=== PATIENT | female | born 1950 | race Caucasian/White ===

== ENCOUNTER 2018-07-21 03:11 | Observation (INO) | payer MEDICARE, OTHER ==
[2018-07-20 14:46] LABS: INR 0.96
[2018-07-21] VITALS (11 sets, daily range): BP systolic 85–155; BP diastolic 49–89
[~2018-07-21] VITALS: Ht 165.1 cm; Wt 89.4 kg
[~2018-07-21 03:11] MED LIST: ACETAMINOPHEN 500 MG TAB PO ONE; CALC500T6 PO; CELECOXIB 200 MG CAP PO ONE; FERR159T PO; MULT-1335 PO; PREGABALIN 150 MG CAPSULE PO ONE
[2018-07-21] MEDS ORDERED: FAMOTIDINE 20 MG TAB PO ONE (06:00)
[2018-07-21] MEDS ORDERED: LIDOCAINE/SOD BICARB 8.4% SYR ID ONE (06:00)
[2018-07-21] MEDS ORDERED: MIDAZOLAM 2 MG/2 ML VIAL IVP PRN (06:00)
[2018-07-21] MEDS ORDERED: NORMOSOL R SOLN(*) 1000 ML BAG 1,000 ML IV PRN ×2 (06:00→10:25)
[2018-07-21] MEDS ORDERED: cloNIDine EPIDUR INJ 100MCG/ML 40 MCG, ROPIVACAINE 0.5% 20 ML VIAL 25 ML, EPINEPHrine H... INJ ONE (06:15)
[2018-07-21] MEDS ORDERED: TRANEXAMIC AC 1000 MG/10ML SDV 1,000 MG in DEXTROSE 5% 50 ML BAG 50 ML IV ONE (06:15)
[2018-07-21] MEDS ORDERED: PREGABALIN 150 MG CAPSULE PO ONE (06:15)
[2018-07-21] MEDS ORDERED: CELECOXIB 200 MG CAP PO ONE (06:15)
[2018-07-21] MEDS ORDERED: ACETAMINOPHEN 500 MG TAB PO ONE (06:15)
[2018-07-21] MEDS ORDERED: ceFAZolin(*) 2GM/D5W 50ML 50 ML IVPB ONE (06:15)
[2018-07-21] MEDS ORDERED: ROPIVACAINE 0.2% 400 MG/200ML 250 ML CONINFUS ONE (06:15)
[2018-07-21] MEDS ORDERED: PROPOFOL EMUL(*) 10MG/ML 20 ML 20 ML ONE (06:41)
[2018-07-21] MEDS ORDERED: LIDOCAINE MPF 1% 5 ML VIAL ONE (06:41)
[2018-07-21] MEDS ORDERED: ROPIVACAINE 0.2% 20 ML VIAL ONE ×2 (06:41)
[2018-07-21] MEDS ORDERED: DEXAMETHASONE SOD 4 MG/ML VIAL ONE ×2 (06:41→06:42)
[2018-07-21] MEDS ORDERED: ONDANSETRON 4 MG/2 ML VIAL ONE (06:41)
[2018-07-21] MEDS ORDERED: fentaNYL CITR 100 MCG/2 ML AMP ONE ×2 (06:42→08:23)
[2018-07-21] MEDS ORDERED: KETAMINE HCL-NS 50 MG/5 ML SYR ONE (06:42)
[2018-07-21] MEDS ORDERED: NS 0.9% IRRIGATION 1000ML PLCT IR ONE (08:21)
[2018-07-21] MEDS ORDERED: LACTATED RINGER 3000 ML BAG IR ONE (08:21)
[2018-07-21] MEDS ORDERED: WATER STERILE FOR IRRIG 1000ML IR ONE (08:22)
[2018-07-21] MEDS ORDERED: KETOROLAC 30 MG/ML VIAL ONE (10:13)
[2018-07-21] MEDS ORDERED: ONDANSETRON 4 MG/2 ML VIAL IVP PRN (10:25)
[2018-07-21] MEDS ORDERED: MAGNESIUM HYDROXIDE* 30ML UDCP PO PRN (10:25)
[2018-07-21] MEDS ORDERED: ZOLPIDEM TARTRATE 5 MG TAB PO PRN (10:25)
[2018-07-21] MEDS ORDERED: KETOROLAC TROM 10MG TAB PO PRN (10:25)
[2018-07-21] MEDS ORDERED: BISACODYL 10 MG SUPP PR PRN (10:25)
[2018-07-21] MEDS ORDERED: MORPHINE 4 MG/ML SDV IVP PRN (10:25)
[2018-07-21] MEDS ORDERED: FLUSH 10 ML SYR IVP PRN (10:25)
[2018-07-21] MEDS ORDERED: PROMETHAZINE 25 MG/ML 1 ML AMP IVP PRN (10:25)
--- NOTE | 2018-07-21 11:21 | RADIOLOGY IMAGING REPORT ---
FACILITY: [facility] - [place] PATIENT NAME: Katerina Valente : 1950 MR: [id number] V: [id number] EXAM DATE: ORDERING PHYSICIAN: TOLU KELLEY TECHNOLOGIST: Location: [facility] Patient: Katerina Valente : 1950 Visit/Account:[id number] Date of Sevice: 07/21/2018 KNEE LIMITED RIGHT Indication: POST TKA Comparison: None. Findings: There are postoperative changes from right total knee arthroplasty. The femoral, patellar, and tibial components are in good alignment. Impression: Postoperative changes right total knee arthroplasty. Report Dictated By: Danish Felix at 07/21/2018 11:15 AM Report E-Signed By: Danish Felix at 07/21/2018 11:16 AM MORN:YVONNE
--- NOTE | 2018-07-21 11:30 | Hospitalist Consultation ---
History of Present Illness Requesting Physician Dr. Gann Reason for Consult Medical Management Chief Complaint s/p right total knee replacement History of Present Illness She was admitted s/p right total knee replacement. It is reported the surgery went well and without complication. History Problems: (1) History of DVT (deep vein thrombosis) Status: Resolved Home Meds Reported Medications Ferrous Sulfate, Dried (IRON) 159 Mg Tablet.er, PO 07/16/18 Calcium Carbonate (CALCIUM) 500 Mg Tablet, 500 MG PO QDAY 07/16/18 Multivitamin With Minerals (MULTIPLE VITAMIN) 1 Each Tablet, 1 EACH PO QDAY, TAB 07/16/18 Allergies: Coded Allergies: No Known Drug Allergies (Unverified , 07/16/18) Hx Smoking: No Caffeine Intake: Coffee, Tea Caffeine/Cups Per Day: 2-3 SERVINGS/DAY Hx Alcohol Use: No Hx Substance Use Disorder: No Social Drug Use: Never Review of Systems All Systems Reviewed/Normal: Yes, Except as Noted Exam Vital Signs Vital Signs Date Time Temp Pulse Resp B/P (MAP) Pulse Ox O2 Delivery O2 Flow Rate FiO2 07/21/18 11:01 93 Nasal Cannula 2.0 07/21/18 10:51 97.7 58 16 114/60 (78) General Appearance: Alert, Awake, No Acute Distress, Afebrile Neuro: No Gross deficits Cardiovascular: Regular Rate and Rhythm Respiratory: No Respiratory Distress, Clear to Auscultation Psych: Alert & Oriented X3, Appropriate Mood & Affect Assessment and Plan Problems: (1) Status post total right knee replacement Status: Acute Assessment & Plan: Followed by Dr. Gann. She does have a history of DVT after delivery of her baby. She was placed on strict bed rest after delivery. She has no family history of blood clots. I feel this DVT event was provoked by the strict bed rest. The patient will be placed on Aspirin at this time. If she is not moving well, she would like to change to Xarelto. (2) History of DVT (deep vein thrombosis) Status: Resolved Assessment & Plan: In 1971. See above. Venous Thromboembolism Antithrombotics Is Pt On Any Antithrombotics?: No Exam Sepsis Risk: No Definite Risk ANSON PEGUERO COMMISSIONING MANAGER Jul 21, 2018 11:30
--- NOTE | 2018-07-21 12:07 | CARSON TKA ---
EVENT DATE: July 21, 2018 SURGEON: Carlos Gann MD ANESTHESIOLOGIST: Andi Madison MD ANESTHESIA: Right adductor block followed by general. 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 PROCEDURE PERFORMED Right total knee arthroplasty. IMPLANTS MicroPort medial pivot CS system with a 4 femur, 4 tibia, 12 mm CS insert, 8 x 32 symmetric patella, femur cut 6 degrees valgus, 10 mm. We also utilized two packages of [employer] [place] Blue cement and ZipLine Wound Closure System. SPECIMENS None. COMPLICATIONS None. BLOOD LOSS Less than 300 cc. OPERATION The patient was brought to the operating room (OR) after receiving appropriate antibiotic and Dr. Madison performed right adductor canal block with indwelling catheter followed by general anesthesia. Right thigh tourniquet placed. The right lower extremity lower extremity was then prepped and draped in the usual sterile fashion. We did not utilize the tourniquet. We started with a midline incision. We then had to dissect out multiple varicosities, tie these off and coagulate them. This added a significant amount of time to our approach. We then performed a medial peripatellar arthrotomy and dissected subperiosteally along the medial tibial plateau to the semimembranosus insertion. Significant fat pad was excised, patella released and everted and adhesions in the gutter released. The knee was brought into flexion. There was eburnation in the patellofemoral joint, particularly laterally with erosion and lateral trochlea and a hypotrophic lateral femoral condyle. We removed the remaining articular cartilage from the distal femoral condyles by sagittal saw. Utilizing step-cut drill, we broached the canal, placed the intramedullary distal femoral alignment guide, setting the cutting block up to 6 degrees valgus and 10 mm. We made our distal cut. We then placed our four-in-one cutting guide, referencing from the anterior flange, epicondyles, posterior condyles. We pinned our block into place. We drilled our 3-degree external rotation holes and sized the femur to #4. Four-in-one cutting block was then positioned followed by Z-retractors to protect the soft tissue. We made our four cuts. The tibia was brought anterior ly on the femur with appropriate retractors. We then utilized the step-cut drill to broach the tibial canal. We placed out posterior intramedullary tibial guide and then referencing 10 mm off the tibial plateau. We pinned the block into place after referencing for rotation. Appropriate retractors were placed. Tibial cut was made and sized to #4. The remaining stump of the ACL and PCL and medial and lateral meniscus were removed by Bovie. Posterior osteophytes were removed by curved osteotome and capsule elevated with Sánchez elevator. Trial #4 tibial baseplate was positioned, referencing from previous rotation and pinned into place. We placed a 12 mm insert and then #4 femur. We achieved full extension, stability to varus and valgus stress and at 90 degrees we had good end point on the anterior drawer. The knee was placed in full extension. The patella was noted to have significant loss of bone, particularly laterally. Medially, we were 60 mm in height. Laterally we were only 10. These were free- hand cut to get down to 14 mm in depth. We placed a peg hole guide inferiorly and medially, drilled out peg holes and this accepted our trial. We drilled the pig holes for the femur, placed these, cut for trochlear chip placement and again we had the aforementioned range of motion and stability and the patella tracked well. Patellofemoral and tibial insert were removed. Appropriate retractors were placed. We set up our keel tower, which was cut, reamed and punched. This was removed. Bone plug was placed in the distal femur and we copiously irrigated while we mixed two packages of [employer] [place] blue cement. We placed 10 cc of our ropivacaine/Toradol cocktail in the posterior capsule followed by placement in the appropriate positioning for the cementation and then copiously irrigated the bony surfaces once again, starting with the tibia. This was cemented into place followed by 12 mm CS insert and #4 femur. Excess cement was removed. We brought the knee up into full extension with axial compression. We cemented the patella. It took 13 minutes for the cement to cure. Again, we had the aforementioned range of motion stability. While were waiting for the cement to cure, we injected the remaining 40 cc of our cocktail into the distal quad mechanism. It had been copiously irrigated by pulse lavage. We then placed the knee at 30 degrees of flexion. We closed the arthrotomy with #2 Vicryl followed by 2-0 Vicryl for subcutaneous tissues. ZipLine Wound Closure System at 45 degrees for skin. Compressive dressing was applied. Patient extubated and taken to recovery in stable condition. Hospitalist team to be consulted for medical management and PT for rehab. [place]
[2018-07-21] MEDS: ACETAMINOPHEN 500 MG TAB PO SCH ×2 (13:58→21:20)
[2018-07-21] MEDS: ceFAZolin(*) 1 GM VIAL 1 GM in NS(*) 0.9% 100 ML ADDVANT BAG 100 ML IVPB SCH ×2 (15:15→23:27)
[2018-07-22 05:25] VITALS: BP 99/50
[2018-07-22] MEDS: ACETAMINOPHEN 500 MG TAB PO SCH ×3 (05:30→22:45)
[2018-07-22] MEDS: ceFAZolin(*) 1 GM VIAL 1 GM in NS(*) 0.9% 100 ML ADDVANT BAG 100 ML IVPB SCH (08:01)
[2018-07-22 08:02] VITALS: BP 100/58
--- NOTE | 2018-07-22 08:31 | Hospitalist Progress Note ---
Subjective Progress Notes Subjective She has complaints of pain to the surgical site this morning. She had no acute events overnight. Patient Complains of: Cardiovascular: No: Chest Pain Respiratory: No: Shortness of Breath Physical Exam Vital Signs Date Time Temp Pulse Resp B/P (MAP) Pulse Ox O2 Delivery O2 Flow Rate FiO2 07/22/18 08:10 93 Nasal Cannula 0.5 07/22/18 08:02 99.0 74 18 100/58 (72) Intake and Output 07/22/18 07:00 Intake Total 2319 ml Output Total 300 ml Balance 2019 ml Intake Oral 300 ml IV Total 2019 ml Output Estimated Blood Loss 300 ml # Voids 4 General Appearance: Alert, Awake, No Acute Distress, Afebrile Neuro: No Gross deficits Cardiovascular: Regular Rate and Rhythm Respiratory: No Respiratory Distress, Clear to Auscultation GI: Soft and Non-Tender Psych: Alert & Oriented X3, Appropriate Mood & Affect Assessment and Plan Problems: (1) Status post total right knee replacement Status: Acute Assessment & Plan: Followed by Dr. Gann. She does have a history of DVT after delivery of her baby. She was placed on strict bed rest after delivery. She has no family history of blood clots. I feel this DVT event was provoked by the strict bed rest. The patient will be placed on Aspirin at this time. If she is not moving well, she would like to change to Xarelto. (2) History of DVT (deep vein thrombosis) Status: Resolved Assessment & Plan: In 1971. See above. Exam Sepsis Risk: No Definite Risk ANSON PEGUERO MOTOR RUNNER Jul 22, 2018 08:31
[2018-07-22] MEDS: ASPIRIN 325 MG TAB PO SCH (09:00)
[2018-07-22 11:31] VITALS: BP 98/59
[2018-07-22 15:46] VITALS: BP 94/55
[2018-07-22 17:25] VITALS: Ht 165.1 cm; Wt 89.4 kg
[2018-07-22] MEDS: oxyCODONE HCL 5 MG CAP PO PRN ×2 (17:55→22:46)
[2018-07-22 19:48] VITALS: BP 113/61
[2018-07-23] MEDS: ACETAMINOPHEN 500 MG TAB PO SCH (05:35)
[2018-07-23] MEDS: oxyCODONE HCL 5 MG CAP PO PRN ×2 (05:36→10:18)
[2018-07-23] MEDS ORDERED: ASPI-757 PO (06:38)
[2018-07-23 07:14] VITALS: BP 113/72
[2018-07-23] MEDS: ASPIRIN 325 MG TAB PO SCH (08:23)
[2018-07-23] MEDS ORDERED: KET10 PO (08:58)
[2018-07-23] MEDS ORDERED: OXYC5TAB38 PO (09:00)
--- NOTE | 2018-07-23 11:19 | Hospitalist Progress Note ---
Subjective Progress Notes Subjective She has no complaints this morning. She had no acute events overnight. Patient Complains of: Cardiovascular: No: Chest Pain Respiratory: No: Shortness of Breath Physical Exam Vital Signs Date Time Temp Pulse Resp B/P (MAP) Pulse Ox O2 Delivery O2 Flow Rate FiO2 07/23/18 07:49 90 Room Air 07/23/18 07:14 98.9 82 16 113/72 (86) 07/22/18 08:10 0.5 Intake and Output 07/23/18 07:00 Intake Total 1914 ml Balance 1914 ml Intake Oral 804 ml IV Total 1110 ml # Voids 7 General Appearance: Alert, Awake, No Acute Distress, Afebrile Neuro: No Gross deficits Cardiovascular: Regular Rate and Rhythm Respiratory: No Respiratory Distress, Clear to Auscultation GI: Soft and Non-Tender Psych: Alert & Oriented X3, Appropriate Mood & Affect Assessment and Plan Problems: (1) Status post total right knee replacement Status: Acute Assessment & Plan: Followed by Dr. Gann. She does have a history of DVT after delivery of her baby. She was placed on strict bed rest after delivery. She has no family history of blood clots. I feel this DVT event was provoked by the strict bed rest. The patient will be placed on Aspirin at this time. If she is not moving well, she would like to change to Xarelto. (2) History of DVT (deep vein thrombosis) Status: Resolved Assessment & Plan: In 1971. See above. Exam Sepsis Risk: No Definite Risk ANSON PEGUERO PANTS BUSHELER Jul 23, 2018 11:19
== END 2018-07-23 09:03 | disposition home or self-care (01) ==
LOC: OR 03:11 → MED 10:45
PROVIDERS: ADMIT Orthopaedic Surgery; ATTEND Orthopaedic Surgery
DX: M17.11 Unilateral primary osteoarthritis, right knee (principal); Z86.718 Personal history of other venous thrombosis and embolism
CPT/HCPCS: 27447; 36415; 73560; 76942; 85610; 86850; 86900; 86901; 97116; 97161; 97530; A9270; C1713; C1776; G0378; J0171; J0690; J0735; J1100; J1885; J2001; J2250; J2405; J2704; J2795; J3010; J3490; J7050; J7060